=== PATIENT | male | born 1960 | race Caucasian/White ===

== ENCOUNTER 2021-07-22 06:18 | Emergency (ER) | payer BC ==
[~2021-07-22] VITALS: Ht 177.8 cm; Wt 92.8 kg
--- NOTE | 2021-07-22 09:20 | NUR ---
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
--- NOTE | 2021-07-22 09:24 | NUR ---
TO ROOM FROM LOBBY. ASSUMED CARE OF PT AT THIS TIME.
--- NOTE | 2021-07-22 09:28 | NUR ---
PT PRESENTS TO ED ROOM 31 WITH C/O CHEST TIGHTNESS, SOB, PRODUCTIVE COUGH, AND HEADACHE X 6 DAYS.
[2021-07-22 10:23] LABS: BASOPHILS % (AUTO) 0 % (0-1); EOSINOPHILS % (AUTO) 0 % (1-7); LYMPHOCYTES % (AUTO) 17 % (22-44); MEAN CORPUSCULAR HEMOGLOBIN 31.4 pg (27.5-34.5); MEAN CORPUSCULAR HGB CONC 33.2 g/dL (33.2-36.2); MEAN PLATELET VOLUME 8.1 fL (7.4-10.4); MONOCYTES % (AUTO) 12 % (2-9); NEUTROPHILS % (AUTO) 71 % (42-75); PLATELET COUNT 198 x10^3/uL (130-400); RED BLOOD COUNT 4.72 x10^6/uL (4.38-5.82)
[2021-07-22 10:32] LABS: ALBUMIN 3.1 g/dL (3.4-5.0); ANION GAP 10 mmol/L (5-15); CALCIUM 9.4 mg/dL (8.5-10.1); CHLORIDE 99 mmol/L (98-107); CREATININE 0.94 mg/dL (0.7-1.3)
[2021-07-22 10:36] LABS: TROPONIN I < 0.015 ng/mL (0.000-0.045)
--- NOTE | 2021-07-22 11:22 | NUR ---
PT DENIES NEEDS AT THIS TIME. AWAITING FURTHER ORDERS.
[2021-07-22] MEDS ORDERED: FILTER 0.22 MICRON IV ONE (12:00)
[2021-07-22] MEDS ORDERED: CASIRIVIMAB 600 MG, IMDEVIMAB (REGN10987) 600 MG in SODIUM CHLORIDE 0.9% 250 ML IVPB ONE (12:00)
--- NOTE | 2021-07-22 12:07 | NUR ---
MEDS INFUSING ORDERED ON EMAR. PT DENIES NEEDS.
--- NOTE | 2021-07-22 14:11 | NUR ---
PT HYPERTENSIVE AT TIME OF DC. ED MD SOTO MADE AWARE OF PT'S BP. MD SPANN'D FOR PT TO GO HOME WITH EDUCATION TO TAKE HOME BP MEDICATION ONCE HOME. PT VERBALIZED UNDERSTANDING. AMBULATORY TO CHECKOUT C STEADY GAIT.
[2021-07-22 14:12] VITALS: BP 187/101
== END 2021-07-22 14:24 | disposition home or self-care (01) ==
LOC: ED 14:20
DX: U07.1 COVID-19 (principal); J06.9 Acute upper respiratory infection, unspecified; R07.89 Other chest pain; R94.31 Abnormal electrocardiogram [ECG] [EKG]
CPT/HCPCS: 36415; 71045; 80048; 82040; 83880; 84484; 85025; 87040; 93005; 99285; M0243; U0003; U0005